=== PATIENT | male | born 1960 | race Caucasian/White ===

== ENCOUNTER 2024-06-25 08:00 | Outpatient (RCR) | payer OTHER, SELFPAY ==
--- NOTE | 2024-06-25 10:00 | BH.COMM_ITS ---
Communication Note Communication with Client Communication Note: Met with pt to complete initial paperwork. Completed Oliver Suicide Severity Rating Scale and Risk Assessment. Moderate Risk noted. No Active suicidal thoughts in last 30 days. One suicide attempt in 1991. See individual note for more information. Pt reports his family are her primary protective factor. No significant changes since prescreen. Consulted with Dr. Braden with plan to admits to [facility] with dx of F33.2.
--- NOTE | 2024-06-25 10:15 | BH.SGPN.GN ---
Behaviors/Verbalizations/Mental Status: []Pt alert and oriented, casually dressed and groomed. Eye contact good. Motor activity appropriate. Speech within normal limits. Affect congruent, mood depressed and anxious. Thoughts linear, logical, no signs of hallucinations or delusions. Client Response/Progress/Benefit: []Pt an active participant throughout. Participated during interactive discussion on defining conflict (internal/external) and possible benefits to conflict. Attentive during psychoeducation on conflict styles and engaged during group discussion in which peers identified the benefits and consequences to each conflict style. Pt identified they often struggle with avoiding internal conflict as it feels as though he is disappointing himself when addressing it. Benefited from increased awareness of the impact of conflict styles in mental health. Will continue in IOP tx to increase healthy coping skills, improve mood stability, and prevent decompensation. Narrative Note: []
--- NOTE | 2024-06-25 11:15 | BH.SGPN.GN ---
Behaviors/Verbalizations/Mental Status: []Eye contact is good. Motor activity is appropriate. Appearance is casual. Speech is Appropriate. Mood is anxious, and depressed. Affect is constricted. Thoughts are linear and logical. No evidence of psychosis. Client Response/Progress/Benefit: [] Pt was engaged in group discussions and activity. Engaged with peers in activity and identifying healthy ways to approach each conflict scenario. Group discussed various conflict resolution skills that can be useful in addressing conflict outside of IOP. Benefited from practicing and learning conflict resolution skills during group activity. Able to identify areas pt wants to work on to improve how pt manages conflict both internally and externally. Expressed wanting to work on setting more boundaries at work to help ?take the pressure I put on myself.? Will continue in IOP to reduce anxiety, increase distress tolerance skills, and improve daily functioning. Narrative Note: []
--- NOTE | 2024-06-25 12:40 | BH.MDN_ITS ---
Multi-Disciplinary Note Note 30-min Individual: Time Started:: 09:30 Date: 06/25/24 Purpose of session/treatment goals addressed:: Purpose of session was to build rapport, gather background information, and solidify treatment goals for [facility] level of care. Eye Contact:: Good Motor Activity:: Appropriate Appearance:: Neat Speech:: Appropriate Mood:: Anxious and Depressed Affect:: Congruent Thoughts:: Linear, Logical and No evidence of hallucinations/delusions noted Staff Interventions:: CBT techniques, rapport building, strengths perspective, treatment planning and completed risk assessment / safety planning Client Response:: Client reported he is seeking IOP level of care at a recommendation from the counseling center of [facility] whom he had a crisis appointment with prior to starting IOP. Client stated he has been struggling for the last few months with increased depression and anxiety. Client reported he has a hard time shutting his brain off which leads to over analyzing, racing thoughts, and impacts his ability to sleep. 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 Client reported despite his boss telling client that is not client's fault the business is struggling he still has a hard time not blaming himself. Client stated he knows logically that his boss has told him the company was not doing well 2 years before client even started this position however client feels like he should have caught something in order to make the company even more financially viable. Client reported due to the company struggling with the finances he has a hard time turning the work off when he gets home. Client stated his depression has started to worsen due to the increased anxiety because he is going to isolate f rom others and only spends time with his and his sons when they are home from college. Client stated he will be really negative towards himself and does not believe he has any friends despite knowing this to not be true. Client stated while he is in IOP he does plan to continue working full-time. Therapist warned her that this could be a lot to manage given he is going to be working on himself for 9 hours a week which can be exhausting. Client stated he is going out at least try out working full-time while coming here but recognizes there is a chance he might need to take some time off work. Client reported he just knows he needs help or he is worried he will start to feel suicidal like he has in the past. Client stated in addition to worrying about being suicidal he is having some issues with losing his train of thought and not remembering things like he used to which does impact his performance at work. Client reported while he is in IOP he would like to learn healthy coping skills on how to manage anxiety and depression, improve daily functioning, and learn how to leave work at work. Risks/Concerns:: Cameron suicide severity rating scale lifetime recent was completed. Client reports history of 1 suicide attempt via drowning when he was working at a [employer] in 1991. 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 Client reported unfortunately somebody saw him flailing around when he was in the [place] trying to drown himself because he did not know how to swim. Client denies any other suicide attempts. Client stated one month after getting he had an aborted suicide attempt. Stated he had a knife and was going to cut himself with intent to , but instead put the knife away. Client denies any suicidal thoughts in the last 30 days. Client does admit to some passive thoughts of like not minding if he did not wake up. Client denies any active suicidal thoughts plan or intention. Client denies access to firearms. Client stated he is seeking treatment because he does not want his depression to get him to the place he was back in the day. Per C-SSRS client is considered a moderate risk. Client's SI is assessed on the daily symptom tracker each time he attends IOP this will be monitored throughout his time in the program. Client states able to keep himself safe and is understandable if he cannot to call crisis or go to the nearest emergency room. Client identifies his and 2 sons to be as protective factors. Progress Toward Goals/Plan:: No progress noted given first day in IOP. Client stated he would like to learn healthy coping skills that can help him get back to how he used to function. Client is to continue IOP to increase healthy coping skills, improve daily functioning, and prevent decompensation. Time Stopped:: 10:00
--- NOTE | 2024-06-25 14:53 | BH.MTP ---
Master Treatment Plan Patient Information Program Physician:: Dr. Coombs Primary Therapist:: Renee Rivera [facility] Psychiatric Diagnoses Psychiatric Diagnoses:: 1. Major depressive disorder, recurrent, severe without psychosis 2. Generalized anxiety disorder 3. History of polysubstance abuse in full remission for 32 years Diagnosis Code(s):: F33.2 Estimated LOS Estimated LOS (in weeks):: 6
--- NOTE | 2024-06-26 09:00 | BH.SGPN.GN ---
Behaviors/Verbalizations/Mental Status: [] Pt alert and oriented, neatly dressed and groomed. Eye contact good. Motor activity appropriate. Speech within normal limits. Affect congruent, mood anxious and depressed. Thoughts linear, logical, no signs of hallucinations or delusions. Reviewed pt?s symptom tracker, no risk for suicidal ideation, plan, or intent 06/26/24 Client Response/Progress/Benefit: []Pt responded well to session, attentive and engaged. Pt reports feeling anxious this morning but pt is trying to maintain a hopeful outlook. Pt reports mental health wins today including coming back to IOP today and getting through an 8 hour shift after IOP sessions. Pt's stressor today is that he needs to learn how to say no but I have a really hard time with that. Pt is encouraged to get FMLA but pt is anxious about this. Pt appeared to benefit from connecting with peers and gaining feedback. Pt will continue IOP tx to prevent decompensation, improve daily functioning, and increase self-care practices. Narrative Note: []
--- NOTE | 2024-06-26 10:30 | BH.NA_ITS ---
Physical Data Vital Signs Pulse Rate: 74 Blood Pressure: 166/86 Height/Weight Height: 1.88 m Weight:: 95.254 kg Weight in Pounds: 210.0 lbs Current Medication Compliance Medication Compliance Do you take your medication as prescribed?: Yes Nutritional History Appetite Nutritional Instructions: Describe your appetite:: Good Additional nutritional information:: Client states he has gained a little bit of weight since he started taking daily insulin. Functional Assessment Sleep Pattern Describe any problems with sleeping: Client states he is currently sleeping about 4-5 hours per night. 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 If so, list type and date:: Yes (feet) Substance Abuse Substance Abuse Please describe substance abuse in the last 30 days:: Client has a history of alcohol use but has been sober since 1991. Client denies tobacco use. Client has a history of polysubstance abuse with benzodiazepines and cocaine, but has been sober completely for 32 years. Client states he drinks between 5-8 cans of pop with caffeine per day. Mental Status Summary Mental Status Significant Findings/Observations on Appearance and Mood:: Client is alert and oriented x 4. Client is casually groomed. Client is cooperative with assessment. Client makes good eye contact. Client's voice has normal rate and volume. Client has appropriate affect. Client makes logical associations and has normal processing. Client denies delusions/hallucinations. Client denies current SI. Suicide Assessment Suicidal Ideation Are you currently or have you been suicidal in the past?: Yes Suicidal Intentional Rating Scale (SIRS): Suicidal thoughts (past) Physician Notification Past Psychiatric History MH Treatment Hx Past Psychiatric Medications:: has been on Nortriptyline since 1991 Age of first mental health symptoms: Client states he has had lifelong mental health struggles. Client has been on medication for mental health since 1991. Describe (age, circumstance, etc) any past hospitalizations: One time many years ago. Client had one suicide attempt around 1990 where he attempted to drown himself. Client has gone to substance rehabilitation in 1991. Current providers for mental health treatment (counselor, psychiatrist, supportive employment case manager, etc.): None. Fall Risk Assessment Age Age: 60-70 Mental Status Mental Status: Willing & able to ask for assistance when needed Physical Status Physical Status: No problems Impairments Impairments: None Elimination Elimination: Continent AND independent Gait or Balance Gait or Balance: Walks independently Hx of Falls History of falls in the past 6 months: No known history Medications/Substances Psychotropics:: Antidepressants Others:: Antihypertensives Medications/substances used within the past 24 hours or ordered to administer: 1-2 of the medications/substances listed above Total Score Total Points:: 2 RN Summary of Impressions Impressions Recommendations Impressions: Psychiatric Issues: 1. Major depressive disorder, recurrent, severe without psychosis 2. Generalized anxiety disorder 3. History of polysubstance abuse in full remission for 32 years 4. Work and primary support issues Level of Care How do the client's current symptoms and functional deficits support need for this level of care?: Client was referred to IOP by Crisis after an episode in May 2024 where client became depressed and had thoughts the world will be a better place without me. Client admits to recent thoughts of worthlessness, hopelessness and some passive thoughts of . Client denies active SI. Client also reports some crying episodes and decreased motivation and energy. Client states he has had some recent panic attacks. IOP will promote gains and prevent further decompensation while providing social support and skills training.
--- NOTE | 2024-06-26 11:10 | BH.SGPN.GN ---
Behaviors/Verbalizations/Mental Status: []Pt alert and oriented, casually dressed and groomed. Eye contact good. Motor activity appropriate. Speech within normal limits. Affect congruent, mood depressed and anxious. Thoughts linear, logical, no signs of hallucinations or delusions. Client Response/Progress/Benefit: []Pt engaged participant AEB listening attentively to others and providing input throughout group. Pt worked within their small group to identify strategies to manage inappropriate guilt. Identified a personal example of inappropriate guilt as ?feeling bad for firing an employee who stole?. Provided insight that this cues a feeling of ?fear of disappointing others and being responsible for other's success? Pt wants to work on combatting inappropriate guilt by correcting the distortions and practicing better internal boundaries. Pt seemed to benefit from learning about strategies to manage appropriate and inappropriate guilt. Pt to continue IOP level of care to continue to prevent decompensation, and promote mood stability. ? Narrative Note: []
--- NOTE | 2024-06-26 11:58 | PCM.BH.PSYEV ---
Psychiatric Evaluation Initial Evaluation Initial Evaluation: Chief Complaint: I have not slept well and for 5 weeks. History of Present Illness: [] The patient is a 64-year-old male with a history of depression, anxiety and polysubstance abuse (in full remission x 32 years) who was referred by the crisis evaluation team where he called and then was seen on June 10, 2024 for worsening symptoms of severe anxiety which made the patient afraid that the world would be better off without me. He has been for 27 years and currently lives with his and 1 son when the son is home from college. He describes his marriage is good. 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 He states that the company is not doing well financially and the patient feels it is my fault. He feels this way despite the fact that his boss says it is not his fault in any way. The patient describes decreased sleep to about 4 to 5 hours a night for about a month or so now. He does not nap during the day. He has initial insomnia for about 30 minutes and then also wakes up during the night. He has also been having headaches in recent weeks which she describes as centrally located which are relieved with ibuprofen with no other symptoms. Due to his severe anxiety and depression he has had trouble functioning at work and at home lately. For primary support he has his . He is drinking about 6 to 8 cans of diet Pepsi daily because he is energy level is low. He lacks motivation lately. He endorses sadness, crying spells, hopelessness, worthlessness. He enjoys golfing with his sons but that is the only thing he enjoys lately. Weight is stable and appetite is okay now. He endorses low energy and decreased concentration and guilt. He endorses passive thoughts of but denies suicidal ideation, plan for suicide, homicidal ideation, hallucinations, delusions or dylon symptoms ever. He is a worrier by nature and has had 2 panic attacks in the past month. He denies any history of self-harm and also denies OCD, eating disorder, trauma and PTSD and seizure. He does had a have a history of 3 or 4 concussions while playing football when he was young. 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 Current Psychiatric Medications: [] Nortriptyline 75 mg p.o. daily (x 15 years) PCP gives meds. Past Psychiatric History: [] He has 1 psych admission in 2008 at the time of his 1 suicide attempt where he tried to drown himself and then was admitted for depression, suicidal attempt and for drug rehabilitation as he was using drugs heavily at the time. He had counseling 15 years ago but did not find it helpful. He was first depressed at age 19 after his parents . His dad when he was 19 and his mother when he was 23 years old. He first took medications for psychiatric reasons in 1991. His past meds only include nortriptyline as above. Substance Use History: [] He has a history of heavy drug use and was addicted to benzodiazepines and cocaine but has now been sober for 32 years. He went to rehab in 1991 for 6 months and has stayed sober since. No other drug use. No alcohol use and no marijuana use. Non-smoker and no vaping. Allergies: [] Penicillin, sulfa Medications: [] Lisinopril, metformin, Semglee insulin, statin, Singulair plus psych meds as dictated above. Past Medical History: [] Borderline hypertension, recent headaches, diabetes mellitus, history of numerous shoulder injuries but no surgery. Foot surgeries in the past. Family Psychiatric History: [] Mother at age 64 and father at age 67. No history of mental illness other than some depression in the family. Father was an alcoholic and his sister was depressed and a drug addict. He had a brother who from alcohol overuse and addiction. No completed suicides in the family. Personal/Social History: [] Patient was born and raised in [place] and describes his childhood as normal. The patient states that his mother is loving but his father put a lot of pressure on him to succeed as an athlete in football and tennis. 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 Patient has 1 brother 8 years older than him who is a half brother who of alcohol use. He has a full sister 5 years older than him but they are not close and she is a drug addict. He did well in school and had friends and played a lot of sports. 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 After he went through rehab in 1991 he then went to college. His first marriage is the current 1 and it has lasted 27 years and his is supportive of him. They have 2 boys 1 is in college still and 1 is an analog ic design engineer. 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 Legal History: [] No arrests. Has package car driver's license. No . Review of Systems: [] Headaches as described above recently. Shoulder injuries and discomfort from his history of long history of playing tennis. Review of systems otherwise negative except as noted in the present illness. Vital Signs: [] Vital signs reviewed in the nurses notes and updated and the patient is deemed medically able to participate in the IOP. Mental Status Examination: [] The patient is a 64-year-old male who appears normal for stated age and is seen wearing glasses and semibalding and is casually dressed and groomed with good hygiene. He is ambulatory with a normal gait and has no psychomotor agitation or retardation. He is cooperative and pleasant during the interview. Eye contact is good and speech is normal rate and rhythm and fluent with no pressure. Mood is depressed and anxious. Affect is constricted. Thought process is goal-directed and organized. Thought content: There is evidence of passive thoughts of . There is no evidence of suicidal ideation, plan for suicide, homicidal ideation, hallucinations or delusions. Reality testing is intact. Intelligence is above average. Judgment is intact. Insight: Good. Impulsivity low. Diagnoses: [] 1. Major depressive disorder, recurrent, severe without psychosis 2. Generalized anxiety disorder 3. History of polysubstance abuse in full remission for 32 years 4. Work and primary support issues Plan: [] The patient will start the IOP and behavioral health as the structure, support, education and group therapy will hopefully prevent worsening of the patient's symptoms which could require admission to the hospital. He felt safe during the interview and if it anytime he does not feel safe he agrees to let us know or go to the emergency room. The risk, options, possible complications and side effects of the medications were discussed with the patient and he understands and accepts these. The patient will continue the nortriptyline. He agrees to add Wellbutrin XL 150 mg p.o. every morning and to add trazodone 50 mg, 1-2 as needed for sleep. In addition he agrees to stay sober from all drug or alcohol use. In addition he will probably take FMLA if he finds it too hard to work and do this IOP. He will continue to follow-up with his outpatient medical and psychiatric providers and I will see the patient in follow-up in 2 weeks.
--- NOTE | 2024-06-26 12:11 | BH.DR.ITP ---
Initial Treatment Plan Patient Information Visit Information: ADMISSION DATE: EXPECTED LOS: 4-6 weeks Problems/Symptoms Problem #1:: Depression Symptom:: Sadness, hopelessness, worthlessness, guilt, anhedonia, biological disruption of sleep, decreased concentration, low energy, passive thoughts of Problem #2:: Anxiety Symptom:: Worry, rumination, panic attacks
--- NOTE | 2024-06-27 09:05 | BH.SGPN.GN ---
Behaviors/Verbalizations/Mental Status: [] Eye contact is fair. Motor activity is appropriate. Appearance is casual. Speech is Appropriate. Mood is anxious. Affect is congruent. Thoughts are linear and logical. No evidence of psychosis. Reviewed daily check in sheet and no reports of suicidal ideations or intent. Client Response/Progress/Benefit: [] Pt participated at times during the group discussion. Attentive. According to pt my brain didn't want me to be here. He shared his struggles with depression in the AM which often lead to him laying in bed for hours trying to convince himself to get out of bed. Elaborated on how this impacts his day, energy, motivation, and functioning. He was able to use opposite-action today to get him to IOP. He shared that he believes that IOP has been helping through support, skills education, and change in routine. Limited progress noted. Beneifted form group support, encouragement, and feedback. Will continue in IOP to prevent decompensation, stabilize mood, and increase healthy coping. Narrative Note: []
--- NOTE | 2024-06-27 10:00 | BH.SGPN.GN ---
Behaviors/Verbalizations/Mental Status: []Pt alert and oriented, neatly dressed and groomed. Eye contact good. Motor activity appropriate. Speech within normal limits. Affect congruent, mood depressed. Thoughts linear, logical, no signs of hallucinations or delusions Client Response/Progress/Benefit: [] Pt was an engaged participate AEB listening attentively to others, participating in group discussions at times, and taking notes throughout. Participated as the group identified ways we can hurt others or sabotage self by not regulating our emotions. Participated with peers to identified ways emotions impact communication. Pt stated high emotions can can result in him having a hard time being logical in a situation, be become reactive. Participated during group activity. Pt benefited from session by gaining an increased understanding on the importance of managing emotions to improve daily functioning. Pt to continue IOP to decrease anxious thoughts, increase healthy coping, and prevent decompensation.
--- NOTE | 2024-06-27 11:15 | BH.SGPN.GN ---
Behaviors/Verbalizations/Mental Status: []Pt alert and oriented, casually dressed and well groomed. Eye contact good. Motor activity appropriate. Speech within normal limits. Affect congruent, mood depressed. Thoughts linear, logical, no signs of hallucinations or delusions. Client Response/Progress/Benefit: [] Pt engaged in session AEB Pt listening attentively to peers and providing input. Attentive during psychoeducation on 4 zones of regulation. Pt able to identify feelings and behaviors for each zone. Pt identified coping skills one can use to support self in each zone. Identified being in the blue zone today as pt feels depressed and apathy. Pt feels he could benefit from being physically active today to give pt some energy and prevent isolation. Benefited from increased education on zones of regulation or stages of alertness for emotions and healthy coping skills to use for each zone. Will continue IOP tx to prevent decompensation, improve daily functioning, and reduce anxious thought patterns. Narrative Note: []
[2024-07-03 09:14] VITALS: BP 166/86; PULSE 74
--- NOTE | 2024-07-03 10:10 | BH.SGPN.GN ---
Behaviors/Verbalizations/Mental Status: [] Eye contact is good. Motor activity is appropriate. Appearance is casual. Speech is Appropriate. Mood is anxious. Affect is congruent. Thoughts are linear and logical. No evidence of psychosis. Client Response/Progress/Benefit: [] Pt was an active participant in group discussion and activity. Attentive during psychoeducation. Along with peers, pt was able to identify barriers to taking action in their life. Identified several symptoms and stressors that pt feels are holding them back from progress such as worry, depression, and self-doubt. Stated these things have kept pt from being more positive. Benefited from increased self-awareness of obstacles. Will continue IOP tx to prevent decompensation, increase healthy coping, and improve functioning. Narrative Note: []
--- NOTE | 2024-07-03 11:10 | BH.SGPN.GN ---
Behaviors/Verbalizations/Mental Status: []Pt alert and oriented, casually dressed and groomed. Eye contact good. Motor activity appropriate. Speech within normal limits. Affect congruent, mood anxious. Thoughts linear, logical, no signs of hallucinations or delusions. Client Response/Progress/Benefit: [] Pt responded well to session, taking notes and participating in worksheet discussion. Pt connected with the discussion on motion vs action steps, and this helped pt learn how to set goals differently. Pt set a goal to break the cycle of worry. Pt identified motion steps including learning breathing techniques, spending time with people who love him, and learn thought challenging strategies. Pt also made action steps which included applying coping skills like deep breathing and thought challenging and asking his to help him ?reality check.? Appeared to benefit from identifying a small goal to benefit mental health. Pt is to continue IOP to prevent decompensation, gain healthy coping skills, and reduce avoidance. ? Narrative Note: []
--- NOTE | 2024-07-03 15:48 | BH.MDN ---
Multi-Disciplinary Note Note 60-min Individual: Time Started:: 09:00 Date: 07/03/24 Purpose of session/treatment goals addressed:: Purpose of session was to address goals 1 and 2 from [facility]. Time Stopped:: 09:55
--- NOTE | 2024-07-05 09:00 | BH.SGPN.GN ---
Behaviors/Verbalizations/Mental Status: [] Eye contact is good. Motor activity is appropriate. Appearance is casual. Speech is Appropriate. Mood is anxious/irritable. Affect is congruent. Thoughts are linear and logical. No evidence of psychosis. Reviewed daily check in sheet and no reports of suicidal ideations or intent. Client Response/Progress/Benefit: [] Pt participated at times during the group discussions. Attentive. Daily symptom tracker notes 5 for anxiety and 2/5 for irritability. Pt shared several [employer] wins. According to pt he changed his bedtime routine in hopes of reducing ruminations at night. I just relive every past decision I ever made The small routine changes proved to be effective stating I slept very well. Also reports minimal ruminations. According to pt he is also going to begin to journal going to give it a shot. He states that he is practicing new skills with the hopes of breaking unhealthy cycles. Shared stressors and anxiety related to struggles to set boundaries. This has lead to resentments and being overwhelmed.Progress noted. Benefited from group support, encouragement, and feedback. Will continue in IOP to prevent decompensation, decrease anxiety, and increase healthy coping. Narrative Note: []
--- NOTE | 2024-07-05 10:10 | BH.SGPN.GN ---
Behaviors/Verbalizations/Mental Status: [] Client alert and oriented, casually dressed and groomed. Eye contact good. Motor activity appropriate. Speech within normal limits. Affect congruent, mood euthymic. Thoughts linear, logical, no signs of hallucinations or delusions. Client Response/Progress/Benefit: [] Pt responded well to session AEB sharing and listening attentively to others. Group provided examples of benefits of having social support, including: validation, get assistance, and accountability. Pt also participated in group discussion regarding the barriers to accessing support including examples like: lack of trust, avoidance, and fear of vulnerability. Pt participated in experiential activity illustrating the impact communication, boundaries, and patience play in creating healthy support systems. Pt appeared to benefit from increased knowledge of the benefits of social support and greater self-awareness. Will continue IOP tx to prevent decompensation, increase healthy thought patterns, and improve overall functioning. Narrative Note: []
--- NOTE | 2024-07-05 11:10 | BH.SGPN.GN ---
Behaviors/Verbalizations/Mental Status: [] Client alert and oriented, casually dressed and groomed. Eye contact good. Motor activity appropriate. Speech within normal limits. Affect congruent, mood euthymic. Thoughts linear, logical, no signs of hallucinations or delusions. Client Response/Progress/Benefit: [] pt was an active participant throughout AEB contributing to discussion, providing personal examples, and taking notes. Pt provided input during discussion on the types of support our supports can provide. Pt able to identify current support system and barriers that get in the way of using supports. Pt reported after identifying what type of supports pt receives, pt gained awareness that pt could benefit from more tangible support. Pt wants to change daily routine and open himself up more. Pt shared this would help with breaking cycle of worrying. Pt seemed to benefit from identifying the type of support pt needs to work on improving. Pt recommended to continue IOP tx to prevent decompensation, reduce isolation, and increase emotional regulation skills. Narrative Note: []
--- NOTE | 2024-07-08 09:00 | BH.SGPN.GN ---
Behaviors/Verbalizations/Mental Status: [] Client alert and oriented, casually dressed and groomed. Eye contact good. Motor activity appropriate. Speech within normal limits. Affect congruent, mood euthymic. Thoughts linear, logical, no signs of hallucinations or delusions. Reviewed client?s symptom tracker, no risk for suicidal ideation, plan, or intent as of 07/08/24 Client Response/Progress/Benefit: [] Client responded well to session, offering ideas to peers and providing encouragement. Client reports feeling centered this morning as Client reported having a great weekend. Client discussed that he spent time at the [place] with is dog and spent time with his sons while they golfed. Client indicated that he realized he needs to take time to focus on his mental health. Client stated that he feels he can't do both work and this program so he is starting FMLA paperwork to take a step back from work. Client reflected that this was a hard decision, but wants to prioritize his mental health right now. Client appeared to benefit from gaining validation form group members and sharing current MH. Client will continue IOP tx as Client continues to struggle with emotional regulation and anxious symptomatology. Narrative Note: []
--- NOTE | 2024-07-08 10:10 | BH.SGPN.GN ---
Behaviors/Verbalizations/Mental Status: []Eye contact is good. Motor activity is appropriate. Appearance is neat. Speech is Appropriate. Mood is euthymic. Affect is congruent. Thoughts are linear and logical. No evidence of psychosis. Client Response/Progress/Benefit: [] Pt was an active participant in group discussion and experiential activity. Attentive during psychoeducation on resilience. Participated during interactive discussion with peers on the definition of resilience. Able to relate experiential activity of group juggle to topics of resilience. Group worked together to identify what can impact one's ability to be resilient which included past experiences, trauma, toxic support system, lack of resources, and current mental/physical health state. Worked well with peers in small group in which they identified factors that contribute to building resilience. Benefited from increased awareness of resilience and the factors that contribute to building resilience. Will continue in IOP to challenge negative thoughts, increase consistent use of healthy coping skills, and prevent decompensation.
--- NOTE | 2024-07-08 11:10 | BH.SGPN.GN ---
Behaviors/Verbalizations/Mental Status: []Pt alert and oriented, neatly dressed and groomed. Eye contact good. Motor activity appropriate. Speech within normal limits. Affect congruent, mood euthymic and anxious. Thoughts linear, logical, no signs of hallucinations or delusions. Client Response/Progress/Benefit: [] Pt responded well to session AEB completing the resilience worksheet provided. Pt participated in the discussion and worked cooperatively with group to identify strategies to enhance each of the components discussed. Pt reports belief they already use resilience traits of??making connections, accepting that change is a part of life, and practicing self-care.? Pt stated they would like to continue to develop resilience trait of ?taking decisive action and avoiding seeing crises as insurmountable.? Pt seemed to benefit from discussing strategies for improving personal resilience and identifying resilience traits pt already possesses. Will continue IOP tx to prevent decompensation, improve daily functioning, and increase self-care practices. ? Narrative Note: []
--- NOTE | 2024-07-10 09:00 | BH.SGPN.GN ---
Behaviors/Verbalizations/Mental Status: [] Eye contact is good. Motor activity is appropriate. Appearance is casual. Speech is Appropriate. Mood is anxious and dysthymic. Affect is congruent. Thoughts are linear and logical. No evidence of psychosis. Reviewed daily check in sheet and no reports of suicidal ideations or intent. Client Response/Progress/Benefit: [] Pt participated at times during the group discussion. Attentive. Daily symptom tracker notes 10/27 for depression and 10/27 for anxiety. Able to identify mental health wins which include having intentional time to himself while walking his dogs yesterday. Shared this allowed him time to feel no pressure to be anyone but himself. Additional win noted as having a family phone call with his kids last night. Shared this always improve his mood and helps him to feel more connected. Stressor noted as reflecting on his values and priorities and feeling uncertain with this. Shared struggling to sit with the uncomfortable. Benefited from group support, encouragement, and feedback. Will continue in IOP to prevent decompensation, stabilize mood, and increase healthy coping. Narrative Note: []
--- NOTE | 2024-07-10 10:57 | PCM.BH.PN ---
Progress Note Progress Note: History of Present Illness/Interim History: The patient is a 64-year-old , male with a history of depression, anxiety and polysubstance abuse in full remission x 32 years who is seen in follow-up at the [facility] behavioral health IOP. I last saw the patient 2 weeks ago and at that time Wellbutrin and trazodone were added to his medication regimen. The patient is tolerating the medications well and feels that his symptoms are slowly improving. According to the staff the patient has been consistent in his attendance and is engaged in the program. He feels he is learning valuable skills to help deal with his mental health issues. His sleep has improved with the trazodone to about 6-1/2 or 7 hours a night. He has decreased his caffeine intake from about 6 cans of soda a day down to 4 and is still working on weaning this down and not using it past 2 PM daily. Work is still his primary stressor and he is trying to set boundaries there. His mood is still somewhat depressed but feels that it is slowly improving. He has not had any panic attacks for 3 weeks now. He describes a history of possible Raynaud's syndrome in his left hand or gets cold and turns purple and this is been going on for several months and sometimes occurs in both hands. No other associated symptoms. He has not used any alcohol or drugs since 1991. He still has some guilt and decrease in his concentration but they are slowly improving. He denies any thoughts of self-harm, passive thoughts of , suicidal ideation, homicidal ideation, hallucinations or delusions. Current Psychiatric Medications: [] Wellbutrin XL 150 mg p.o. daily in the morning (x 2 weeks now); trazodone 50 mg nightly for sleep (x 2 weeks); nortriptyline 75 mg p.o. daily Mental Status Examination: [] The patient is a 64-year-old male who appears normal for stated age and is semibalding and wearing glasses and is casually dressed and groomed with good hygiene. He has no psychomotor agitation or retardation and is ambulatory with a normal gait. He is cooperative and pleasant during the interview. Speech is normal rate and rhythm and fluent with no pressure and eye contact is good. Mood is depressed. Affect is full and normal. Thought process is goal-directed and organized. Thought content: The patient is hopeful for the future. There is no evidence of passive thoughts of , plan for suicide, thoughts of self-harm, suicidal ideation, homicidal ideation, hallucinations or delusions. Reality testing is intact. Judgment is intact. Insight is good. Impulsivity low. Diagnoses: [] 1. Major depressive disorder, recurrent, severe without psychosis (improving) 2. Generalized anxiety disorder 3. History of polysubstance abuse in full remission for 32 years 4. Rule out Raynaud's syndrome of the hands 5. Work and primary support issues Plan: [The patient will continue the IOP and behavioral health at [facility] as the structure, support, education and group therapy will hopefully prevent worsening of the patient's symptoms which could require admission to the hospital. He felt safe during the interview and if it anytime he does not feel safe he agrees to let us know or go to the emergency room. The risk, options, possible complications and side effects of the medications were discussed with the patient and he understands and accepts these. No medication changes were made today although refills were sent in for his Wellbutrin and his trazodone. He agrees to stay sober from all drug or alcohol use. He has brought in [facility] papers which we will fill out for him. He will continue to follow-up with his outpatient medical and psychiatric providers and I will see the patient in follow-up in 2 weeks.]
--- NOTE | 2024-07-10 11:10 | BH.SGPN.GN ---
Behaviors/Verbalizations/Mental Status: []Client alert and oriented, casually dressed and groomed. Eye contact good. Motor activity appropriate. Speech within normal limits. Affect congruent, mood euthymic. Thoughts linear, logical, no signs of hallucinations or delusions. Client Response/Progress/Benefit: [] Client receptive of session, engaged throughout AEB client actively listening and contributing to discussion as well as taking notes.? Client participated in the experiential activity and did well to communicate ideas with peers and manage emotions. Client attentive as group processed how the emotions and perspective of the group impacted the activity. Group worked together to identify different coping skills to help manage pitfalls. Client identified pitfall they struggle with as being a control freak. Client plans to work on their pitfall by delegating and using grounding techniques. Benefited from identifying personal pitfalls and strategies to overcome these pitfalls. Will continue IOP tx to prevent decompensation and increase overall functioning. Narrative Note: []
--- NOTE | 2024-07-12 09:00 | BH.SGPN.GN ---
Behaviors/Verbalizations/Mental Status: [] Eye contact is good. Motor activity is appropriate. Appearance is casual. Speech is Appropriate. Mood is anxious. Affect is congruent. Thoughts are linear and logical. No evidence of psychosis. Reviewed daily check in sheet and no reports of suicidal ideations or intent. Client Response/Progress/Benefit: [] Pt participated when prompted. Attentive. Daily symptom tracker notes 25 for depression and 5 for anxiety. Has been utilizing self-care and mindfulness to help with anxiety and negative automatic thoughts. Continues to feel overwhelmed with his thoughts which impact emotions and behaviors. Currently ruminating on work and taking time away from work to focus on mental health. Group provided feedback on distraction as well as reframing/challenging automatic thoughts. Benefited from group support, encouragment, and feedback. Will continue in IOP to prevent decompensation, stabilize mood, and increase healthy coping. Narrative Note: []
--- NOTE | 2024-07-12 10:10 | BH.SGPN.GN ---
Behaviors/Verbalizations/Mental Status: []Patient was alert and oriented, casually dressed and groomed. Eye contact was good, motor activity normal, speech within normal limits. Affect congruent, mood anxious. Thoughts linear, logical, no signs of hallucinations or delusion Client Response/Progress/Benefit: []Pt participated in the group discussions AEB nodding and taking notes. Attentive during psychoeducation Goal Setting. Participated during the discussion on common barriers and pt identified some personal barriers as feeling overwhelmed and having all or nothing expectations. Group also identified benefits of goals as sense of purpose, improved self-confidence, more motivation for other goals, and improved mental health. Pt?s personal benefit was feeling a sense of accomplishment and direction. Benefited from increased awareness of mental health benefits of goals as well as psychoeducation on SMART goal criteria. Will continue in IOP to improve daily functioning, increase self-care practices, and reduce ruminations. ? Narrative Note: []
--- NOTE | 2024-07-12 15:53 | BH.MDN ---
Multi-Disciplinary Note Note 60-min Individual: Date: 07/12/24
--- NOTE | 2024-07-12 15:53 | BH.MDN_ITS ---
Multi-Disciplinary Note Note 60-min Individual: Date: 07/12/24
== END 2024-07-22 23:59 ==
LOC: BHIOP 08:00
PROVIDERS: Referring Provider Psychiatry & Neurology Psychiatry; Visit Provider Psychiatry & Neurology Psychiatry
DX: F33.2 Major depressive disorder, recurrent severe without psychotic features (principal); F41.1 Generalized anxiety disorder; F19.11 Other psychoactive substance abuse, in remission; Z79.899 Other long term (current) drug therapy
CPT/HCPCS: S9480; 90832; 90834; 90837; 90853

== ENCOUNTER 2024-07-23 08:02 | Outpatient (RCR) | payer OTHER, SELFPAY ==
[2024-07-23 00:25] VITALS: BP 166/86; PULSE 74
--- NOTE | 2024-07-24 09:00 | BH.SGPN.GN ---
Behaviors/Verbalizations/Mental Status: []Pt alert and oriented, neatly dressed and groomed. Eye contact good. Motor activity appropriate. Speech within normal limits. Affect congruent, mood content. Thoughts linear, logical, no signs of hallucinations or delusions. Reviewed pt?s symptom tracker, no risk for suicidal ideation, plan, or intent 07/24/24 Client Response/Progress/Benefit: []Pt was an active participant in group discussions. Attentive. Able to identify mental health wins including finally feeling better after being physically sick for a week and being able to work through a difficult day yesterday. Pt's stressor today is that he is currently feeling detached and not present. Pt stated pt is feeling relief this morning because he is no longer sick. Pt receptive to feedback from peers which pt reported was helpful. Progress noted. Benefited from group support, encouragement, and feedback. Will continue in IOP to prevent decompensation, increase use of healthy coping skills, and improve daily functioning. Narrative Note: []
--- NOTE | 2024-07-24 10:10 | BH.SGPN.GN ---
Behaviors/Verbalizations/Mental Status: [] Eye contact is good. Motor activity is appropriate. Appearance is casual. Speech is Appropriate. Mood is content. Affect is congruent. Thoughts are linear and logical. No evidence of psychosis Client Response/Progress/Benefit: [] Pt responded well to session AEB contributing to small group discussion, taking notes, and listening attentively to others. Group defined anger and discussed the benefits of managed anger and anger as a secondary emotion. Group shared perspective on benefits of anger as advocating for self and getting needs met, as well as a catalyst for change. Pt completed worksheet on anger triggers and personal warning signs of anger. Pt identified a common trigger as people not following through or unkept promises. Appeared to benefit from increased knowledge of the anger cycle as well as personal triggers. Will continue IOP to increase healthy coping, prevent decompensation, and improve functioning at work and home. Narrative Note: []
--- NOTE | 2024-07-24 11:10 | BH.SGPN.GN ---
Behaviors/Verbalizations/Mental Status: []Client alert and oriented, casually dressed and groomed. Eye contact good. Motor activity appropriate. Speech within normal limits. Affect congruent, mood euthymic. Thoughts linear, logical, no signs of hallucinations or delusions. Client Response/Progress/Benefit: []Pt was engaged throughout AEB contributing to group discussion and activity. Group processed how they each responded to the intentionally difficult task they were asked to completed and described the physical and emotional anger cues experienced throughout, as well as strategies used for managing these frustrations. Pt contributed as group brainstormed healthy coping skills for better managing anger which included: music, walking/exercise, taking a break, healthy venting, avoiding unnecessary stressors, reflection, and journaling. Pt cooperative with working in small groups to identify what strategy wants to work on to help interrupt personal anger cycle. Pt to continue IOP to practice challenge distorted thoughts, improve confidenced, and prevent decompensation.
--- NOTE | 2024-07-29 11:12 | BH.SGPN.GN ---
Behaviors/Verbalizations/Mental Status: [] Client alert and oriented, casually dressed and groomed. Eye contact good. Motor activity appropriate. Speech within normal limits. Affect congruent, mood euthymic. Thoughts linear, logical, no signs of hallucinations or delusions. Client Response/Progress/Benefit: [] Client responded well to session, attentive. Did well to process activity and work with group to relate the strategies used to overcome barriers in the activity to managing change in own life. 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 Client stated currently in action stage. Reported goal of validating employees 1x a day. Appeared to benefit from identifying a small goal to work towards. Client will continue IOP tx to prevent decompensation and improve daily functioning. Narrative Note: []
--- NOTE | 2024-08-05 09:00 | BH.SGPN.GN ---
Behaviors/Verbalizations/Mental Status: [] Eye contact is good. Motor activity is appropriate. Appearance is casual. Speech is Appropriate. Mood is euthymic. Affect is full. Thoughts are linear and logical. No evidence of psychosis. Reviewed daily check in sheet and no reports of suicidal ideations or intent. Client Response/Progress/Benefit: [] Pt participated at times during the group discussion. Attentive. Daily symptom tracker notes 10/27 for depression and agitation. Pt missed IOP last week for unknown reasons. He did not mention this during his check-in which was mainly positive. ? I?m becoming more centered?. Reports being less irritable and anxious despite stressors at work. Elaborated on work stressors. Progress noted. Benefited from group support, encouragement, feedback. Will continue in IOP to prevent decompensation, stabilize mood, and increase healthy coping. Narrative Note: []
--- NOTE | 2024-08-07 09:05 | BH.SGPN.GN ---
Behaviors/Verbalizations/Mental Status: [] ?Pt alert and oriented, casually dressed and groomed. Eye contact good. Motor activity appropriate. Speech within normal limits. Affect congruent, mood content. Thoughts linear, logical, no signs of hallucinations or delusions. Reviewed pt?s symptom tracker, no risk for suicidal ideation, plan, or intent 08/07/24 Client Response/Progress/Benefit: []Pt receptive of session, engaged throughout and appearing to benefit from group support and encouragement. Identified current mental health wins as allowing himself to have a boring day at work without feeling anxious about it. Additional win noted as taking his dog for a jog for the first time in quite a while. Expressed feeling more positive as a result. Stressor noted as waiting for the other shoe to drop but did well to challenge this. Benefited from group supportive feedback, encouragement, and support. Recommended continued IOP tx to prevent decompensation, improve mood stability, and promote skill application. Narrative Note: []
--- NOTE | 2024-08-07 10:15 | BH.SGPN.GN ---
Behaviors/Verbalizations/Mental Status: []Pt alert and oriented, casually dressed and groomed. Eye contact good. Motor activity appropriate. Speech within normal limits. Affect congruent, mood euthymic. Thoughts linear, logical, no signs of hallucinations or delusions. Client Response/Progress/Benefit: []Pt participated in group discussion. Group worked together to identify benefits of healthy relationships which included encouragement, motivation, longer lifespan, connectedness and trust. Group identified factors that lead to unhealthy relationships which included low self-esteem, trauma, use of unhealthy skills, parent's negative relationship growing up, and co-dependence. Pt reports he has entered unhealthy relationships in the past because of lack of self-esteem and difficulty setting boundaries. Benefited from increased insight and awareness of benefits of healthy relationships and factors that contribute to unhealthy relationships. Will continue in IOP to increase consistent use of healthy coping skills, improve daily functioning, and reduce negative thought patterns. Narrative Note: []
--- NOTE | 2024-08-07 10:56 | PCM.BH.PN ---
Progress Note Progress Note: History of Present Illness/Interim History: The patient is a 64-year-old male with a history of depression, anxiety and polysubstance abuse in full remission for 32 years who is seen in follow-up at the [facility] behavioral health IOP. I last saw the patient 1 month ago and at that time no medication changes were made the patient has had inconsistent attendance recently and states that he was doing so well I did not think I needed to continue. Patient has a tendency to not finish things that he starts and he is decided that he does feel he needs to complete the program and continue to improve his skills in dealing with his mental health issues. The patient states he still feels really good and his depression has improved and he is ruminating much less. He has gained awareness and when he starts ruminating negatively in his hand he has not been able to somewhat stop himself from doing this. He states that as a result of what he is learned his relationship with his and sons has improved also. He has decreased his caffeine feeding intake down from about 6 cans a day to about 2 cans a day. He has not had any panic attacks for over a month now. He remains sober from alcohol and drugs. He has some decrease in concentration at times and is trying to become aware of this and improve it. He denies any thoughts of self-harm, passive thoughts of , suicidal ideation, plan for suicide, homicidal ideation, hallucinations or delusions. Current Psychiatric Medications: [] Wellbutrin XL 150 mg p.o. daily in the morning (x 6 weeks); trazodone 50 mg nightly; (x 6 weeks); nortriptyline 75 mg p.o. daily. Mental Status Examination: [] The patient is a 64-year-old male who appears normal for stated age and is seen wearing glasses and casually dressed and groomed with good hygiene. He is ambulatory with a normal gait and has no psychomotor agitation or retardation. He is cooperative and pleasant during the interview. Eye contact is good and speech is normal rate and rhythm and fluent with no pressure. Mood is euthymic. Affect is full and normal. Thought process is goal-directed and organized. Thought content: The patient is hopeful for the future. There is no evidence of passive thoughts of , plan for suicide, suicidal ideation, thoughts of self-harm, homicidal ideation, hallucinations or delusions. Reality testing is intact. Judgment is intact. Insight is good. Impulsivity is low. Diagnoses: [] 1. Major depressive disorder in remission (F33.81) 2. Generalized anxiety disorder 3. History of polysubstance abuse in full remission for 32 years 4. Rule out Raynaud's syndrome of the hands 5. Work and primary support issues Plan: [] The patient will continue the IOP and behavioral health as the structure, support, education and group therapy will hopefully prevent worsening of the patient's symptoms. He felt safe during the interview and if it anytime he does not feel safe he agrees to let us know or go to the emergency room. No medication changes were made made today. Patient agrees to stay sober from all drug or alcohol use. He will continue to follow-up with his outpatient providers and I will see him in follow-up while he is in the IOP. Refills were given for trazodone and Wellbutrin XL at the current doses.
--- NOTE | 2024-08-07 11:15 | BH.SGPN.GN ---
Behaviors/Verbalizations/Mental Status: [] Pt alert and oriented, casually dressed and groomed. Eye contact fair. Motor activity appropriate. Speech within normal limits. Affect congruent, mood euthymic, Thoughts linear, logical, no signs of hallucinations or delusions Client Response/Progress/Benefit: [] Client responded well to session, engaged and taking notes throughout. Worked with group to connect components of the experiential activity with characteristics of healthy and unhealthy relationships. Attentive during psychoeducation about characteristics of healthy, unhealthy, and abusive relationships. Client reported he would like to continue to improve trust, equal decision making, and honesty in relationships. Appeared to benefit from identifying current healthy relationship attributes and an area client wants to work on to build healthier relationships. Client to continue IOP to continue challenging distortions, promote healthy coping skills, and prevent decompensation.
--- NOTE | 2024-08-13 15:02 | BH.DS ---
Discharge Summary Demographics Date of Admission:: 06/25/24 Discharge Date: 08/13/24 Presenting Problems at Admission:: The patient is a 64-year-old male with a history of depression, anxiety and polysubstance abuse (in full remission x 32 years) who was referred by the crisis evaluation team where he called and then was seen on June 10, 2024 for worsening symptoms of severe anxiety which made the patient afraid that the world would be better off without me.. 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 He states that the company is not doing well financially and the patient feels it is my fault. He feels this way despite the fact that his boss says it is not his fault in any way. The patient describes decreased sleep to about 4 to 5 hours a night for about a month or so now. Due to his severe anxiety and depression he has had trouble functioning at work and at home lately. He endorses passive thoughts of but denies suicidal ideation, plan for suicide, homicidal ideation, hallucinations, delusions or dylon symptoms ever. Discharge Diagnoses:: 1. Major depressive disorder, recurrent, severe without psychosis F33.2 2. Generalized anxiety disorder 3. History of polysubstance abuse in full remission for 32 years 4. Work and primary support issues Reason for Discharge:: Client stopped attending IOP sessions despite several conversations between this engineering writer and client about the importance of consistent attendance. Client had no showed/no called 3 times and it almost led to discharge from program 2 weeks ago, but the client had spoke to this engineering writer stating he knows he needs the program. Client started attending consistently again for one week, but has recently no showed/no called 2 additional IOP sessions. Client is to be discharged from [facility] today due to him breaking the program attendance and group expectations policy he signed at admission to the program. Treatment Progress During Treatment & Response: Progress noted with client reporting improved sleep quality, decreased daily anxiety, improved functioning at home and work, ability to challenge distortions more effectively, and improved ability to see the positives daily. Client's difficulty with setting boundaries with work did negatively impact his ability to attend IOP consistently. Client admitted a couple of weeks ago he had stopped coming to [facility] because he was feeling better and didn't think he needed it anymore. However, client's anxious thoughts had prevented him from reaching out to talk to IOP team about being ready for discharge. Issues Still to be Addressed:: Client could benefit from reinforcement of healthy coping skills, challenge distortions, improving ability to set boundaries with work, and continued work on building confidence. Discharge Recommendations/Instructions:: Client had been provided with information for outpatient counseling at [facility]. Discharge plan with client could not be completed due to him not showing up and not returning phone calls. Discharge Handout
--- NOTE | 2024-09-04 09:55 | BH.MDN ---
Multi-Disciplinary Note Note 60-min Individual: Time Started:: 10:00 Date: 08/05/24 Time Stopped:: 11:00
== END 2024-08-13 08:06 | disposition home or self-care (01) ==
LOC: BHIOP 08:02
PROVIDERS: Referring Provider Psychiatry & Neurology Psychiatry; Visit Provider Psychiatry & Neurology Psychiatry
DX: F33.42 Major depressive disorder, recurrent, in full remission (principal); F41.1 Generalized anxiety disorder; F19.11 Other psychoactive substance abuse, in remission; Z79.899 Other long term (current) drug therapy
CPT/HCPCS: S9480; 90837; 90853